=== PATIENT | female | born 1995 | race Caucasian/White ===

== ENCOUNTER 2020-11-16 10:32 | Emergency (ER) | payer MEDICAID ==
[~2020-11-16] VITALS: Ht 160 cm; Wt 100.2 kg
[2020-11-16 13:27] LABS: BILIRUBIN,URINE NEGATIVE (NEG); CLARITY,URINE HAZY; COLOR,URINE YELLOW
[2020-11-16 13:28] LABS: BACTERIA,URINE 0 /HPF (0-FEW); NITRITE,URINE NEGATIVE (NEG); PROTEIN,URINE 30 mg/dL (NEG-TRACE); RBC,URINE TNTC /HPF (0-2); UROBILINOGEN,URINE 0.2 mg/dL (0.2 mg/dL); WBC,URINE 0 /HPF (0-4)
--- NOTE | 2020-11-16 14:46 | RAD ---
EXAMINATION: US PELVIS COMPLETE (PELVIC ULTRASOUND) HISTORY: VAGINAL BLEEDING, RECENT SAB AT 13 WEEKS, R/O RPOC TECHNIQUE: Sonography of the pelvis was performed by transvaginal and transabdominal (limited) techni ques. COMPARISON: None FINDINGS: Uterus: 12.1 x 6.5 x 6.3 cm - Myometrium: Normal sonographic appearance. - Endometrium: Large heterogeneous echogenic focus along the endometrial canal with internal and s urrounding hyperemia. Right ovary: 3.6 x 2.4 x 2.5 cm - Normal sonographic appearance and blood flow. Left ovary: 3.3 x 2.9 x 1.9 cm - Normal sonographic appearance and blood clot. Pelvic free fluid: None. IMPRESSION: Nonspecific heterogeneous echogenicity along the endometrial canal as described, retained products of conception favored over endometritis. Electronically signed by: Cristo Balderrama DO (11/16/2020 2:43 PM) [facility]
--- NOTE | 2020-11-16 14:47 | ED.ADGEN ---
Past Medical History Additional Past Medical Histor: miscarriage, obesity Past Surgical History: Cholecystectomy, , Other Additional Past Surgical Histo: gastric sleeve Smoking Status: Never Smoker Alcohol Use: None General Adult EDM: Chief Complaint: VAGINAL BLEEDING HPI: HPI: Patient is 25-year-old female presents to the emergency room complaining of vaginal bleeding. Patient had a miscarriage with a 13-week on October 09. At that time she had Cytotec but did not have a D&C done. She has a follow-up appointment at [facility] next week. She states that she bled for a couple of weeks and then the bleeding stopped for about a week. Over the last week she started to have some spotting. She woke up this morning and had a lot of back and abdominal pain. She then had a large amount of blood clots and some tissue looking material. She states she is now spotting. She continues to have an achy pain in her back. Pain in her abdomen this morning was cramping. The cramping pain is gone away. Aching is worse with movement. Review of Systems: Review of Systems: Complete ROS is negative unless otherwise documented in HPI Allergies: Allergies: Allergies Coded Allergies Type Severity Reaction Last Updated Verified No Known Drug Allergies 11/16/20 No Physical Exam: PE: General: Awake, alert, NAD. Well Nourished, well hydrated. Cooperative HEENT: Atraumatic, EOMI, PERRL, airway patent, moist oral mucosa Neck: Supple, trachea midline Respiratory: CTA bilaterally, normal effort, no wheezing/crackles CV: RRR, no murmur, cap refill <2 GI: Soft, nondistended, nontender, no masses MSK: No obvious deformities Skin: Warm, dry, intact Neuro: A&O x3, speech NL, sensory and motor grossly intact, no focal deficits Psych: Normal affect, normal mood, not suicidal or homicidal Current Patient Data: Labs: Laboratory Tests Test 11/16/20 11:55 Urine Collection Type Unknown Urine Color Yellow Urine Clarity Hazy Urine pH 6.0 (<5.0-8.0) Urine Specific [place] 1.020 (1.000-1.030) Urine Protein 30 mg/dL (NEG-TRACE) Urine Glucose (UA) Negative mg/dL (NEG) Urine Ketones (Stick) Negative mg/dL (NEG) Urine Blood Large (NEG) Urine Nitrite Negative (NEG) Urine Bilirubin Negative (NEG) Urine Urobilinogen Dipstick 0.2 mg/dL (0.2 mg/dL) Urine Leukocyte Esterase Trace (NEG) Urine RBC Tntc /HPF (0-2) Urine WBC 0 /HPF (0-4) Urine Squamous Epithelial Cells Few /LPF Urine Bacteria 0 /HPF (0-FEW) Vital Signs: Vital Signs Date Time Temp Pulse Resp B/P (MAP) Pulse Ox O2 Delivery O2 Flow Rate FiO2 11/16/20 14:58 66 20 120/61 (80) 100 Room Air 11/16/20 12:00 98.2 98.2 EKG: EKG: [] Heart Score: C/O Chest Pain: N/A Risk Factors: Risk Factors: DM, Current or recent (<one month) smoker, HTN, HLP, family history of CAD, obesity. Risk Scores: Score 0 - 3: 2.5% MACE over next 6 weeks - Discharge Home Score 4 - 6: 20.3% MACE over next 6 weeks - Admit for Clinical Observation Score 7 - 10: 72.7% MACE over next 6 weeks - Early Invasive Strategies Radiology/Procedures: Radiology/Procedures: [] Course & Med Decision Making: Course & Med Decision Making Pertinent Labs and Imaging studies reviewed. (See chart for details) Patient is a 25-year-old female who presents to the emergency room complaining of vaginal bleeding a month after a 13-week miscarriage. Patient did not have a D&C at that time. Ultrasound will be done to evaluate for retained products. Ultrasound does show signs of possible retained products. I have discussed the results with Dr. Albert the on-call DENTAL HYGIENE PROFESSOR. She states that as long as the patient does not have current heavy vaginal bleeding that they could do this outpatient and schedule her for D&C. I have discussed options with the patient. Patient does not want to be admitted at this time because her child has chemotherapy tomorrow. We discussed that if she develops heavy vaginal bleeding again she should return to the emergency room for admission. She will call the DENTAL HYGIENE PROFESSOR office at 8 AM tomorrow to be scheduled for D&C. Patient's test results and vitals while in the ED were fully reviewed and discussed with the patient. Patient is stable and at this time does not need admission to the hospital. We have discussed strict return precautions and the importance of following up with their Primary Care Physician. Patient stated understanding and was given an opportunity to ask any questions. Patient is in agreement with plan. Bandar Disclaimer: Bandar Disclaimer: This electronic medical record was generated, in whole or in part, using a voice recognition dictation system. Departure Departure Impression: Primary Impression: Retained products of conception after miscarriage Disposition: HOME / SELF CARE / HOMELESS Condition: STABLE Referrals: NO PCP (PCP) Call tomorrow morning at 8am VICKY SPARROW MD Patient Instructions: Incomplete Miscarriage, Vaginal Bleeding During , [id number] YUSEF ORDAZ MD Nov 16, 2020 14:47
[2020-11-16 14:58] VITALS: BP 120/61
== END 2020-11-16 14:54 | disposition home or self-care (01) ==
LOC: ER 10:32
DX: O03.4 Incomplete spontaneous abortion without complication (principal); Z90.49 Acquired absence of other specified parts of digestive tract; Z3A.13 13 weeks gestation of pregnancy
CPT/HCPCS: 76856; 81001; 99284; 99285-25

== ENCOUNTER → 2021-01-29 | Outpatient (CLI) | payer MEDICAID ==
--- NOTE | 2021-01-29 14:42 | KCIC ---
EXAM: Lumbar spine MRI without contrast. HISTORY: Pain. TECHNIQUE: Multiplanar, multisequence magnetic resonance imaging of the lumbar spine was performed wi thout contrast. COMPARISON: None. FINDINGS: There is no listhesis. There is minimal chronic anterior wedging of T11. There is no acute or subacute fracture or suspicious osseous lesion. There is degenerative endplate change with associa lashaun edema and disc desiccation at L4-L5 and L5-S1. The conus terminates at T12-L1. At L1-L2, L2-L3 and L3-L4, there is no stenosis. At L4-L5, there is a posterior central disc protrusion superimposed on a disc bulge and endplate wade deling. There is mild left foraminal stenosis with abutment the exiting left L4 nerve root. There is minimal central canal stenosis. At L5-S1, there is a large posterior central disc protrusion superimposed on endplate remodeling. The re is mild left and minimal right facet arthropathy. There is moderate left foraminal stenosis with a butment the exiting left L5 nerve root. There is moderate to severe central canal stenosis. IMPRESSION: Degenerative change involving the lower lumbar spine, described in detail above. This res ults in mild left foraminal stenosis with abutment of the exiting L4 nerve root and mild central pamela l stenosis at L4-L5 and moderate left foraminal stenosis with abutment the exiting left L5 nerve root and moderate to severe central canal stenosis at L5-S1. Electronically signed by: Ashely Pittman MD (01/29/2021 2:40 PM) [id number]
== END ==
LOC: KCIC MRI 13:07
PROVIDERS: ATTEND Family Medicine
DX: M47.817 Spondylosis without myelopathy or radiculopathy, lumbosacral region (principal); M48.07 Spinal stenosis, lumbosacral region; M51.27 Other intervertebral disc displacement, lumbosacral region; M41.26 Other idiopathic scoliosis, lumbar region
CPT/HCPCS: 72148

== ENCOUNTER 2021-02-07 22:16 | Emergency (ER) | payer MEDICAID ==
[~2021-02-07] VITALS: Ht 154.9 cm; Wt 109.0 kg
[2021-02-07 22:27] VITALS: BP 123/70
[2021-02-07] MEDS ORDERED: HYDR-2761 PO (22:41)
--- NOTE | 2021-02-07 22:42 | PHYS DOC ---
Past Medical History Additional Past Medical Histor: miscarriage, obesity (ASHLEY MORALES ELECTRON TUBE ASSEMBLER) Past Surgical History: Cholecystectomy, , Other Additional Past Surgical Histo: gastric sleeve (ASHLEY MORALES ELECTRON TUBE ASSEMBLER) Smoking Status: Unknown if ever smoked Additional Information: vapes Alcohol Use: None Social History Narrative: rx ativan (ASHLEY MORALES ELECTRON TUBE ASSEMBLER) General Adult EDM: Chief Complaint: BACK PAIN - NO INJURY HPI: HPI: Patient is a 25 year old female who presents to the ED today complaining of sharp intermittent moderate chronic low back pain that has been going on for years. Patient states she had an MRI of her lumbar spine done yesterday which showed severe stenosis. She states she is scheduled to see a surgeon as well as a pain clinic doctor at [facility]. She states her appointment is in 3 weeks. She states she cannot wait until then. Patient denies any trauma. Reports pain intermittently radiating to bilateral lower extremities, denies any loss of bowel/bladder function. (ASHLEY MORALES ELECTRON TUBE ASSEMBLER) Review of Systems: Review of Systems: Constitutional: Denies fever or chills. [] Musculoskeletal: Reports low back pain Integument: Denies rash. [] Neurologic: Denies headache, focal weakness or sensory changes. [] Psychiatric: Denies depression or anxiety. [] (ASHLEY MORALES ELECTRON TUBE ASSEMBLER) Heart Score: C/O Chest Pain: N/A Risk Factors: Risk Factors: DM, Current or recent (<one month) smoker, HTN, HLP, family history of CAD, obesity. Risk Scores: Score 0 - 3: 2.5% MACE over next 6 weeks - Discharge Home Score 4 - 6: 20.3% MACE over next 6 weeks - Admit for Clinical Observation Score 7 - 10: 72.7% MACE over next 6 weeks - Early Invasive Strategies (ASHLEY MORALES ELECTRON TUBE ASSEMBLER) Allergies: Allergies: Allergies Coded Allergies Type Severity Reaction Last Updated Verified No Known Drug Allergies 11/16/20 No (ASHLEY MORALES ELECTRON TUBE ASSEMBLER) Physical Exam: PE: Constitutional: Well developed, well nourished, no acute distress, non-toxic appearance. [] Abdomen: Bowel sounds normal, soft, no tenderness, no masses, no pulsatile masses. [] Skin: Warm, dry, no erythema, no rash. [] Back: Overweight patient, scoliosis noted, diffuse paraspinal muscle tenderness bilateral lumbar spine, no midline tenderness, no CVA tenderness. [] Extremities: No tenderness, no cyanosis, no clubbing, ROM intact, no edema. [] Neurologic: Alert and oriented X 3, normal motor function, normal sensory function, no focal deficits noted. [] Psychologic: Affect normal, judgement normal, mood normal. [] (ASHLEY MORALES APRN) Current Patient Data: Vital Signs: Vital Signs Date Time Temp Pulse Resp B/P (MAP) Pulse Ox O2 Delivery O2 Flow Rate FiO2 02/07/21 22:27 98.5 105 16 123/70 (87) 99 Room Air 98.5 (ELDON SPRINGER DO) EKG: EKG: [] (ASHLEY MORALES APRN) Radiology/Procedures: Radiology/Procedures: [] (ASHLEY MORALES APRN) Course & Med Decision Making: Course & Med Decision Making Pertinent Labs and Imaging studies reviewed. (See chart for details) This a 35-year-old female patient presenting to the ED today complaining of chronic low back pain. Patient has an appointment with the pain clinic at as well as a surgeon, appointments are coming up in 3 weeks. She is requesting something for pain. She has tried [id number] remedies with no relief including ibuprofen and Tylenol. Given a prescription for hydrocodone 10 tablets to be used hopefully until she sees her PCP or the surgeon. She has no cauda equina syndrome symptoms (ASHLEY MORALES APRN) Course & Med Decision Making I have participated in the care of this patient and I have reviewed and agree with all pertinent clinical information above including history, exam, and recommendations. (ELDON SPRINGER DO) Dragon Disclaimer: Dragon Disclaimer: This electronic medical record was generated, in whole or in part, using a voice recognition dictation system. (ASHLEY MORALES APRN) Departure Departure Impression: Primary Impression: Back pain Qualified Codes: M54.42 - Lumbago with sciatica, left side; M54.41 - Lumbago with sciatica, right side Disposition: 01 HOME / SELF CARE / HOMELESS Condition: STABLE Referrals: ANUSHA GAYTAN PA-C (PCP) MARLENE HOPE MD follow up as soon as you can LORI BURKETT MD follow up in one week Patient Instructions: Back Pain, Adult, [id number] Additional Instructions: You were seen for low back pain, we highly recommend he follow-up with the pain clinic doctor and the neurosurgeon at [facility]. If you do not have a pain clinic or neurosurgeon you can follow up with the ones at [place] [facility] Hydrocodone Bit/Acetaminophen (HYDROCODONE-APAP 5-325 ) 1 Tab Tablet 1 TAB PO PRN Q6HRS PRN for PAIN, #10 TAB 0 Refills Prov: ASHLEY MORALES APRN 02/07/21 ASHLEY MORALES APRN Feb 07, 2021 22:42 ELDON SPRINGER DO Feb 07, 2021 23:26
== END 2021-02-07 22:45 | disposition home or self-care (01) ==
LOC: ER 22:16
DX: M54.41 Lumbago with sciatica, right side (principal); M54.42 Lumbago with sciatica, left side; G89.29 Other chronic pain; Z90.49 Acquired absence of other specified parts of digestive tract
CPT/HCPCS: 99283

== ENCOUNTER 2021-03-01 22:08 | Emergency (ER) | payer MEDICAID ==
[~2021-03-01] VITALS: Ht 154.9 cm; Wt 97.7 kg
[~2021-03-01 22:08] MED LIST: HYDR-2761 PO
--- NOTE | 2021-03-01 23:46 | PHYS DOC ---
Past Medical History Past Medical History: Sciatica Additional Past Medical Histor: miscarriage, obesity, scoliosis, NERVE DAMAGE TO BACK (ASHLEY MORALES CHIEF OF PRODUCTION) Past Surgical History: Cholecystectomy, , Tonsillectomy, Other Additional Past Surgical Histo: gastric sleeve (ASHLEY MORALES CHIEF OF PRODUCTION) Smoking Status: Unknown if ever smoked Alcohol Use: None (ASHLEY MORALES CHIEF OF PRODUCTION) General Adult EDM: Chief Complaint: BACK INJURY HPI: HPI: Patient is a 25 year old female with a history of scoliosis, back pain with sciatica, who presents to the ED today complaining of 8 out of 10 bilateral low back pain radiating to bilateral lower extremities that began after she fell. Patient states she tripped on a toy on a staircase at home and fell down 16 steps. Patient denies any mid or upper back pain. Denies any neck pain or head pain. Denies hitting her head on the ground. Denies any loss of consciousness. Denies any hematuria. Describes the pain as sharp and intermittent worse on certain movements. (ASHLEY MORALES CHIEF OF PRODUCTION) Review of Systems: Review of Systems: Constitutional: Denies fever or chills. [] GI: Denies abdominal pain, nausea, vomiting, bloody stools or diarrhea. [] : Denies dysuria. [] Musculoskeletal: Reports low back pain Integument: Denies rash. [] Neurologic: Denies headache, focal weakness or sensory changes. [] Psychiatric: Denies depression or anxiety. [] (ASHLEY MORALES CHIEF OF PRODUCTION) Heart Score: C/O Chest Pain: N/A Risk Factors: Risk Factors: DM, Current or recent (<one month) smoker, HTN, HLP, family history of CAD, obesity. Risk Scores: Score 0 - 3: 2.5% MACE over next 6 weeks - Discharge Home Score 4 - 6: 20.3% MACE over next 6 weeks - Admit for Clinical Observation Score 7 - 10: 72.7% MACE over next 6 weeks - Early Invasive Strategies (ASHLEY MORALES CHIEF OF PRODUCTION) Allergies: Allergies: Allergies Coded Allergies Type Severity Reaction Last Updated Verified No Known Drug Allergies 11/16/20 No (ASHLEY MORALES CHIEF OF PRODUCTION) Physical Exam: PE: Constitutional: Well developed, well nourished, no acute distress, non-toxic appearance. [] Abdomen: Bowel sounds normal, soft, no tenderness, no masses, no pulsatile masses. [] Skin: Warm, dry, no erythema, no rash. [] Back: Scoliosis noted on the upper spine, diffuse paraspinal muscle tenderness to the right lumbar spine with slight midline lumbar spine tenderness, no thoracic lumbar spine tenderness, no CVA tenderness. [] Extremities: No tenderness, no cyanosis, no clubbing, ROM intact, no edema. [] Neurologic: Alert and oriented X 3, normal motor function, normal sensory function, no focal deficits noted. [] Psychologic: Affect normal, judgement normal, mood normal. [] (ASHLEY MORALES [place] CHIEF OF PRODUCTION) Current Patient Data: Labs: Laboratory Tests Test 03/01/21 22:48 POC Urine HCG, Qualitative Hcg negative (Negative) Vital Signs: Vital Signs Date Time Temp Pulse Resp B/P (MAP) Pulse Ox O2 Delivery O2 Flow Rate FiO2 03/01/21 23:33 98.1 78 18 105/60 (75) 99 Room Air 98.1 (ASHLEY MORALES [place] CHIEF OF PRODUCTION) EKG: EKG: [] (ASHLEY MORALES [place] CHIEF OF PRODUCTION) Radiology/Procedures: Radiology/Procedures: []PROCEDURE: CT LUMBAR SPINE WO CONTRAST PQRS Compliance Statement: One or more of the following individualized dose reduction techniques were utilized for this examination: 1. Automated exposure control 2. Adjustment of the mA and/or kV according to patient size 3. Use of iterative reconstruction technique CT LUMBAR SPINE WO Clinical Indication: Reason: fall pain / Spl. Instructions: / History: Comparison: MR lumbar spine without contrast January 29, 2021. TECHNIQUE: Helical CT imaging of the lumbar spine is performed without IV contrast. Findings: No acute fracture of the lumbar spine is identified. There is no significant disc space narrowing. No loss of vertebral body height. The alignment is maintained. The sacroiliac joints are symmetric. Spondylitic discs of L4/L5 and L5/S1 are redemonstrated, better evaluated on previous MR. There is moderate to severe central canal stenosis of L5/S1. No new spondylosis is identified. Transverse processes are intact. Limited visualization of the retroperitoneum is unremarkable. IMPRESSION: No acute fracture or malalignment of the lumbar spine is seen. Electronically signed by: Lyle Stark MD (03/01/2021 11:57 PM) [facility] DICTATED and SIGNED BY: LYLE STARK MD DATE: 03/01/21 [id number] (ASHLEY MORALES APRN) Course & Med Decision Making: Course & Med Decision Making Pertinent Labs and Imaging studies reviewed. (See chart for details) This a 25-year-old female patient presenting to the ED today complaining of back pain after falling down 16 steps. No cauda equina syndrome symptoms CT of the lumbar spine is negative for any acute findings. Discharge to home. Follow-up with pain clinic, she states she has an appointment of March 13, 2021. (ASHLEY MORALES APRN) Dragon Disclaimer: Dragon Disclaimer: This electronic medical record was generated, in whole or in part, using a voice recognition dictation system. (ASHLEY MORALES APRN) Departure Departure Impression: Primary Impression: Low back pain Qualified Codes: M54.42 - Lumbago with sciatica, left side; M54.41 - Lumbago with sciatica, right side Additional Impression: Fall down steps Qualified Codes: W10.8XXA - Fall (on) (from) other stairs and steps, initial encounter Disposition: HOME / SELF CARE / HOMELESS Condition: STABLE Referrals: ANUSHA GAYTAN PA-C (PCP) Follow-up in 1 week Patient Instructions: Back Pain, Adult, Fall Prevention and Home Safety Additional Instructions: You were evaluated in the emergency room for back pain after falling, your CT of the lumbar spine is negative for any acute findings. Please contact your pain clinic doctor and follow-up as well as your primary care doctor. Scripts Naproxen (NAPROXEN) 500 Mg Tablet 1 TAB PO BID for pain, #30 TAB 0 Refills Prov: ASHLEY MORALES CHIEF OF PRODUCTION 03/02/21 Hydrocodone Bit/Acetaminophen (HYDROCODONE-APAP 5-325 ) 1 Tab Tablet 1 TAB PO PRN Q6HRS PRN for PAIN, #14 TAB 0 Refills Prov: ASHLEY MORALES CHIEF OF PRODUCTION 03/02/21 Cyclobenzaprine Hcl (CYCLOBENZAPRINE HCL) 10 Mg Tablet 1 TAB PO TID, #30 TAB Prov: DONOVANCHELLEASHLEY Willard CHIEF OF PRODUCTION 03/02/21 Attending Signature Attending Signature I have reviewed the PA/CARD FEEDER's note and plan of care. I was available for consultation as needed during the patient's visit in the emergency department. I agree with the clinical impression, plan, and disposition. (RYANN STAFFORD DO) ASHLEY MORALES APRN Mar 01, 2021 23:46 RYANN STAFFORD DO Mar 02, 2021 06:13
--- NOTE | 2021-03-02 | RAD ---
PQRS Compliance Statement: One or more of the following individualized dose reduction techniques were utilized for this examinat ion: 1. Automated exposure control 2. Adjustment of the mA and/or kV according to patient size 3. Use of iterative reconstruction technique CT LUMBAR SPINE WO Clinical Indication: Reason: fall pain / Spl. Instructions: / History: Comparison: MR lumbar spine without contrast January 29, 2021. TECHNIQUE: Helical CT imaging of the lumbar spine is performed without IV contrast. Findings: No acute fracture of the lumbar spine is identified. There is no significant disc space narrowing. No loss of vertebral body height. The alignment is maintained. The sacroiliac joints are symmetric. Spo ndylitic discs of L4/L5 and L5/S1 are redemonstrated, better evaluated on previous MR. There is moder ate to severe central canal stenosis of L5/S1. No new spondylosis is identified. Transverse processes are intact. Limited visualization of the retroperitoneum is unremarkable. IMPRESSION: No acute fracture or malalignment of the lumbar spine is seen. Electronically signed by: Lyle Stark MD (03/01/2021 11:57 PM) [facility]
[2021-03-02] MEDS ORDERED: NAPR-514 PO (00:22)
[2021-03-02] MEDS ORDERED: HYDR-2761 PO (00:22)
[2021-03-02] MEDS ORDERED: CYCL10TA19 PO (00:22)
[2021-03-02 00:34] VITALS: BP 103/53
== END 2021-03-02 00:48 | disposition home or self-care (01) ==
LOC: ER 22:08
DX: M54.41 Lumbago with sciatica, right side (principal); M54.42 Lumbago with sciatica, left side; Z90.49 Acquired absence of other specified parts of digestive tract; W10.8XXA Fall (on) (from) other stairs and steps, initial encounter; Y93.89 Activity, other specified; Y92.098 Other place in other non-institutional residence as the place of occurrence of the external cause; Y99.8 Other external cause status
CPT/HCPCS: 72131; 81025; 99284-25